=== PATIENT | female | born 1990 | race African-American/Black ===

== ENCOUNTER 2016-12-11 08:04 | Observation (INO) | payer MEDICAID ==
[~2016-12-11] VITALS: Ht 165.1 cm; Wt 87.5 kg
[2016-12-11] MEDS ORDERED: LACTATED RINGER'S 1,000 ML IV ONE (08:53)
[2016-12-11 09:15] LABS: Urine RBC None Seen /hpf (0 - 4)
[2016-12-11] MEDS: TERBUTALINE SULFATE 1 MG/ML 1ML VIAL SC SCH ×2 (09:24→10:03)
[2016-12-11 09:51] LABS: Urine Bilirubin Negative (Negative); Urine Blood Negative /uL (Negative); Urine Color Yellow (Yellow); Urine Glucose Normal (Normal); Urine Ketone Negative (Negative); Urine Mucus FEW (None Seen); Urine Nitrite Negative (Negative); Urine Squamous Epithelial Cell FEW /hpf (<5); Urine Urobilinogen Normal (Negative)
== END 2016-12-11 10:45 | disposition home or self-care (01) | DRG 566 ==
LOC: LDRP 08:04
PROVIDERS: ADMIT Obstetrics & Gynecology; ATTEND Obstetrics & Gynecology
DX: O62.9 Abnormality of forces of labor, unspecified (principal); Z3A.00 Weeks of gestation of pregnancy not specified
CPT/HCPCS: 59025; 80307; 81001; 81002; 96360; 96361; 96372; G0378; J3105; 96365; 96366

== ENCOUNTER 2022-12-01 08:40 | Emergency (ER) | payer MEDICAID ==
[~2022-12-01] VITALS: Ht 165.1 cm; Wt 68.6 kg
[2022-12-01 09:18] VITALS: BP 149/100
[2022-12-01] MEDS ORDERED: cefTRIAXone SOD 1,000 MG VL IM ONE (09:30)
[2022-12-01] MEDS ORDERED: HYDROcodone-ACET 5/325MG TAB PO ONE (09:30)
[2022-12-01] MEDS ORDERED: CLIN300C8 PO (09:49)
[2022-12-01] MEDS ORDERED: IBUP800T27 PO (09:49)
== END 2022-12-01 09:55 | disposition home or self-care (01) ==
LOC: ER 08:40
DX: K04.7 Periapical abscess without sinus (principal); F41.9 Anxiety disorder, unspecified; Z91.013 Allergy to seafood
CPT/HCPCS: 96372; 99283; J0696